=== PATIENT | male | born 1990 | race Caucasian/White ===

== ENCOUNTER 2020-05-17 12:05 | Emergency (ER) | payer SELFPAY ==
[2020-05-17 12:13] VITALS: BP 149/95; PULSE 130; RESP 18; TEMP 36.6; O2SAT 100
[2020-05-17 13:30] LABS: Add Urine Microscopic? NO; Appearance Urine Clear (Clear); Bilirubin Urine Negative (Negative); Blood Urine Negative (Negative); Color Urine Colorless (Yellow); Glucose Urine UA Negative (Negative); Ketones Urine Negative (Negative); Leukocyte Esterase Ur Negative LEU/UL (Negative); Nitrate Urine Negative (Negative); Protein Urine Negative (Negative); Specific Grav Ur 1.008 (1.001-1.035); Urobilinogen Urine Negative mg/dL (<2.0)
[2020-05-17 13:31] LABS: Bacteria Urine Trace /hpf; RBC Urine 0-2 /hpf (0-2); WBC Urine 0-3 /hpf
--- NOTE | 2020-05-17 13:32 | ED.GENADULT ---
HPI - General Adult General Chief complaint: Urogenital-Male Stated complaint: injury to penis Time Seen by Provider: 05/17/20 12:26 Source: patient Mode of arrival: ambulatory Limitations: no limitations History of Present Illness HPI narrative: Patient presents with chief complaint of penile injury that occurred 24 hours ago during sexual intercourse. Patient states he was engaging in sexual intercourse when he heard and felt a popping sensation to his penis and since he has been unable to obtain an erection. Patient states there is some tenderness to the base of his penis however there is not any swelling, erythema or ecchymosis. Patient states he has been able to urinate without difficulty. Patient not noted any blood in his urine. Patient states he has on occasion felt some urgency in regards to urination but denies any bladder tenderness or feelings of incomplete voiding. Patient denies any prior injury to his penis. Patient denies any testicular pain. Patient reports discomfort is a 2 out of 10. Patient reports the discomfort increases when he attempts to gain an erection. Patient denies any concern for STDs or any penile discharge Related Data Allergies Allergy/AdvReac Type Severity Reaction Status Date / Time NKDA Allergy Mild Unknown Uncoded 05/17/20 12:17 Review of Systems Review of Systems: Narrative: CONSTITUTIONAL: Denies fever, chills, or sweats. EYES: Denies visual changes, redness, or discharge. ENT: Denies rhinorrhea, congestion, sore throat, or otalgia. CARDIOVASCULAR: Denies chest pain, palpitations, or edema. RESPIRATORY: Denies cough or dyspnea. GASTROINTESTINAL: Denies abdominal pain, nausea, vomiting, or diarrhea. GENITOURINARY: Denies dysuria or hematuria. SKIN: Denies rash or itching. MUSCULOSKELETAL: Reports penile injury denies back pain, joint pain, or myalgia. NEUROLOGIC: Denies headache, numbness, dizziness, or weakness. PSYCHIATRIC: Denies anxiety or depression. Exam Narrative: Exam Narrative: GENERAL: Well-appearing, well-nourished, and in no acute distress. HEAD: Normocephalic, atraumatic. EYES: PERRLA and EOMI. CHEST: Clear to auscultation. No respiratory distress. No wheezes rales or rhonchi HEART: Regular rate and rhythm. No murmur heard. Normal peripheral pulses. ABDOMEN: Soft, nontender over bladder. : No erythema or ecchymosis to penis. mild tenderness with palpation of base. No bleeding or abrasions noted to urethra. Testicles not tender. No outward sign o f trauma. EXTREMITIES: Normal range of motion. No edema. SKIN: Warm, dry, no rash. NEURO: No focal deficits. Alert and oriented x3. PSYCH: Normal mood and affect. Course Vital Signs Vital signs: Vital Signs Temperature 97.9 F 05/17/20 12:13 Pulse Rate 130 H 05/17/20 12:13 Respiratory Rate 18 05/17/20 12:13 Blood Pressure 149/95 H 05/17/20 12:13 Pulse Oximetry 100 05/17/20 12:13 Temperature 97.9 F 05/17/20 12:13 Pulse Rate 90 05/17/20 13:57 Respiratory Rate 18 05/17/20 13:57 Blood Pressure 138/80 05/17/20 13:57 Pulse Oximetry 98 05/17/20 13:57 Medical Decision Making MDM Narrative Medical decision making narrative: Discussed patient case and plan with Dr Wright. Patient does not have any signs of testicular pain or trauma or urethral injury. Discussed with patient the need to follow-up with urology for further investigation. Instructed patient to avoid erections and sexual activity. Patient verbalized understanding agreement with plan and denies any other questions or concerns. Differential Diagnosis Differential Diagnosis: Penile fracture, testicular injury, urethral injury, uti, STD Vital Signs Vital Signs: Vital Signs Temperature 97.9 F 05/17/20 12:13 Pulse Rate 130 H 05/17/20 12:13 Respiratory Rate 18 05/17/20 12:13 Blood Pressure 149/95 H 05/17/20 12:13 Pulse Oximetry 100 05/17/20 12:13 Temperature 97.9 F 05/17/20 12:13 Pulse Rate 90 05/17/20 13:57 R
[2020-05-17 13:57] VITALS: BP 138/80; PULSE 90; RESP 18; O2SAT 98
== END 2020-05-17 13:58 | disposition home or self-care (01) ==
PROVIDERS: Physician Assistant; Emergency Provider Family Medicine; Referring Provider Family Medicine
DX: S39.94XA Unspecified injury of external genitals, initial encounter (principal); W51.XXXA Accidental striking against or bumped into by another person, initial encounter
CPT/HCPCS: 81003; 99283

== ENCOUNTER 2023-04-30 08:41 | Outpatient (CLI) | payer OTHER, SELFPAY ==
[2023-04-30 19:47] LABS: Basophils Percent Auto 0.4 % (0.2-1.2); Eosinophils Absolute Auto 0.2 K/mm3 (0-0.3); Eosinophils Percent Auto 2.8 % (0-4.4); Hematocrit 45.4 % (42.0-52.0); Hemoglobin 15.6 g/dL (14.0-18.0); Immature Granulocyte Absolute 0.02 K/mm3 (0.00-0.031); Immature Granulocyte Percent A 0.3 % (0-0.5); Lymphocytes Absolute Auto 3.03 K/mm3 (0.9-3.2); Lymphocytes Percent Auto 41.1 % (18.3-44.2); Mean Corpuscular HGB Conc 34.4 g/dl (32-36); Mean Corpuscular Hemoglobin 32.2 pg (26-34); Mean Corpuscular Volume 93.6 fl (80-100); Mean Platelet Volume 10.7 fl (7.4-10.4); Monocytes Absolute Auto 0.7 K/mm3 (0.1-0.6); Neutrophils Absolute Auto 3.3 K/mm3 (1.3-6.7); Neutrophils Percent Auto 45.4 % (45.5-73.1); Platelet Count Result 236 k/mm3 (150-375); Red Blood Count 4.85 M/mm3 (4.6-6.20); Red Cell Distribution Width 12.1 % (11.5-14.5); White Blood Count 7.4 K/mm3 (4.5-10.0)
[2023-04-30 19:55] LABS: Alanine Aminotransferase 34 U/L (6-50); Albumin Level 4.3 g/dL (3.5-5.1); Alkaline Phosphatase 66 U/L (38-126); Anion Gap 6 mmol/L (8-16); Aspartate Amino Transferase 38 U/L (17-59); Bilirubin,Total 0.8 mg/dL (0.2-1.3); Blood Urea Nitrogen 10 mg/dL (9-20); Calcium 9.1 mg/dL (8.4-10.2); Carbon Dioxide 27 mmol/L (22-30); Chloride 104 mmol/L (98-107); Cholesterol 185 mg/dL (0-200); Estimated Glomerular Filt Rate > 60; Glucose 95 mg/dL (65-110); HDL Direct 38 mg/dL; Sodium 137 mmol/L (137-145); Triglycerides 84 mg/dL (<150)
[2023-04-30 20:06] LABS: LDL Cholesterol Direct 122 mg/dL
[2023-04-30 20:39] LABS: Thyroid Stimulating Hormone Reflex 0.235 uIU/mL (0.465-4.68)
[2023-04-30 21:38] LABS: Free T4 Free Thyroxine Reflex 1.32 ng/dL (0.78-2.19)
== END 2023-04-30 08:42 | disposition home or self-care (01) ==
LOC: ANHGOSHLAB 08:43
PROVIDERS: PCP Family Medicine; Visit Provider Family Medicine
DX: K62.5 Hemorrhage of anus and rectum (principal); Z13.220 Encounter for screening for lipoid disorders; Z13.228 Encounter for screening for other metabolic disorders; Z13.29 Encounter for screening for other suspected endocrine disorder
CPT/HCPCS: 36415; 80053; 80061; 84439; 84443; 84480; 85025

== ENCOUNTER 2023-07-26 08:31 | Outpatient (CLI) | payer OTHER, SELFPAY ==
[2023-07-26 19:51] LABS: Thyroid Stimulating Hormone Reflex 0.744 uIU/mL (0.465-4.68)
== END 2023-07-26 08:32 | disposition home or self-care (01) ==
LOC: ANHGOSHLAB 08:33
PROVIDERS: PCP Family Medicine; Visit Provider Family Medicine
DX: R79.89 Other specified abnormal findings of blood chemistry (principal)
CPT/HCPCS: 36415; 84443